=== PATIENT | female | born 1965 | race Two or more races ===

== ENCOUNTER 2024-03-17 08:22 | Inpatient (IN) | payer BC ==
[2024-03-15 09:04] LABS: Urine Bacteria None Seen /hpf (None Seen)
[2024-03-15 09:06] LABS: Basophils # (auto) 0.1 10 ^3/uL (0-0.2); Eosinophils # (auto) 0.1 10 ^3/uL (0-0.8); Hemoglobin 13.4 g/dL (12.2-16.2); Lymphocytes # (auto) 1.6 10 ^3/uL (0.4-5.4); Lymphocytes % (auto) 24.2 % (10.0-50.0); Mean Corpuscular Hemoglobin 29.3 pg (28.0-32.0); Mean Corpuscular Hgb Conc. 33.5 g/dL (32.0-36.0); Mean Corpuscular Volume 87.4 fL (80.0-100.0); Monocytes # (auto) 0.5 10 ^3/uL (0-1.3); Monocytes % (auto) 7.3 % (0.0-12.0); Neutrophils # (auto) 4.2 10 ^3/uL (1.6-8.6); Neutrophils % (auto) 65.5 % (37.0-80.0); Nucleated Red Blood Cells % 0.1 %; Red Blood Cells 4.58 10^6/uL (4.0-5.20); Red Cell Distribution Width 12.6 % (11.8-14.3); White Blood Cell 6.4 10^3/uL (4.4-10.8)
[2024-03-15 09:23] LABS: Urine Blood TRACE /uL (Negative); Urine Budding Yeast OCCASIONAL /hpf (None Seen); Urine Clarity Clear (Clear); Urine Color Light-Yellow (Yellow); Urine Protein, UAD Negative (Negative); Urine Specific Gravity 1.018 (1.001-1.035); Urine Urobilinogen Normal (Negative); Urine WBC 2 /hpf (0 - 5); Urine pH 6.5 (5.0-9.0)
[2024-03-15 09:24] LABS: INR 1.01 (0.9-1.15); Partial Thromboplastin Time 26.7 SEC (24.5-34.5); Prothrombin Time 10.7 sec (9.3-11.8)
[2024-03-15 09:47] LABS: Alanine Aminotransferase 19 U/L (7-40); Albumin 4.2 g/dL (3.2-4.8); Alkaline Phosphatase 76 U/L (46-116); Anion Gap 4 (5-15); Aspartate Aminotransferase 15 U/L (13-40); BUN/Creatinine Ratio 13.5 (10.0-20.0); Bilirubin, Total 0.7 mg/dL (0.2-1.0); Blood Urea Nitrogen 12 mg/dL (9-23); Calcium 9.8 mg/dL (8.5-10.1); Carbon Dioxide 32 mmol/L (20-30); Chloride 106 mmol/L (98-107); Glucose 137 mg/dL (74-106); Sodium 142 mmol/L (136-145); Total Protein 6.7 g/dL (5.7-8.2)
[~2024-03-17] VITALS: Ht 162.6 cm; Wt 65.3 kg
[2024-03-17] MEDS: levoFLOXacin 750MG 150 ML IV ONE (08:15)
[~2024-03-17 08:22] MED LIST: ACET-1304 PO; BUPR-133 PO; MULT-733 OR; TOPI100T68 PO; TRAZ-228 PO; ZINC50TA7 PO
[2024-03-17] MEDS: LIDOCAINE 2% JELLY 11ml (GLYDO) ONE (08:39)
[2024-03-17] MEDS: TRANEXAMIC ACID 20 ML ONE (08:39)
[2024-03-17] MEDS: ceFAZolin 2 GM/D5W50ml 50 ML IV ONE (08:41)
[2024-03-17] MEDS ORDERED: HYDROmorphone HCL 2 MG/ML VL/or syr ONE (09:51)
[2024-03-17] MEDS ORDERED: MIDAZOLAM HCL 2MG/2ML 2ml VIAL (1mg/ml) ONE (09:51)
[2024-03-17] MEDS ORDERED: fentaNYL CITRATE 100 MCG/2 ML VL ONE (09:51)
[2024-03-17] MEDS ORDERED: DexAMETHasone SOD PHOS 10MG/1ML VIAL INJ ONE (11:30)
[2024-03-17] MEDS ORDERED: NITROGLYCERIN 0.4 MG SL TAB SL PRN (15:15)
[2024-03-17] MEDS ORDERED: ONDANSETRON HCL 4 MG/2 ML VIAL IV PRN (15:15)
[2024-03-17] MEDS ORDERED: ceFAZolin 1GM/50ML 50 ML IV SCH (15:15)
[2024-03-17] MEDS ORDERED: MORPHINE SULFATE INJ 2 MG/ml SYRG IV PRN (15:15)
[2024-03-17 15:43] VITALS: O2SAT 99
[2024-03-17] MEDS: D5W/SOD CHLO 0.9% 1,000 ML IV SCH (16:10)
[2024-03-17] MEDS ORDERED: MORPHINE SULFATE 4 MG/ML SYR/VIAL IV PRN (16:15)
[2024-03-17] MEDS ORDERED: HYDROmorphone HCL 2 MG/ML VL/or syr IV PRN (16:15)
[2024-03-17] MEDS ORDERED: MIDAZOLAM HCL 2MG/2ML 2ml VIAL (1mg/ml) IV PRN (16:15)
[2024-03-17] MEDS ORDERED: LABETALOL HCL 5 MG/ML 4ML SYRINGE IV PRN (16:15)
[2024-03-17] MEDS ORDERED: ePHEDrine SULFATE 50 MG/ML AMP IV PRN (16:15)
[2024-03-17] MEDS: ONDANSETRON HCL 4 MG/2 ML VIAL IV ONE (16:33)
[2024-03-17 16:56] VITALS: BP 116/61; PULSE 75; PULSE 79; RESP 16; RESP 18; TEMP 98.1; O2SAT 99
[2024-03-17] MEDS ORDERED: PHENYLEPHRINE HCL 10 MG/ML VL IV ONE (17:13)
[2024-03-17 20:00] VITALS: BP 123/65; PULSE 86; RESP 20; TEMP 98.1; O2SAT 98
[2024-03-17] MEDS: MORPHINE SULFATE 4 MG/ML SYR/VIAL IV PRN (20:13)
[2024-03-17 21:00] VITALS: BP 123/65; PULSE 86; RESP 22; TEMP 98.1; O2SAT 98
[2024-03-17] MEDS: ceFAZolin 1GM/50ML 50 ML IV SCH (21:09)
[2024-03-17] MEDS: CYCLOBENZAPRINE HCL 10 MG TAB PO SCH (21:09)
[2024-03-17] MEDS: DOCUSATE SOD 100 MG CAP PO SCH (21:09)
[2024-03-17] MEDS: HYDROcodone-ACET 10/325MG TAB PO PRN (23:42)
[2024-03-18] VITALS (7 sets, daily range): BP systolic 113–141; BP diastolic 56–66; PULSE 68–84; RESP 16–22; TEMP 97.9–100.4; O2SAT 69–100
[2024-03-18] MEDS: THROAT LOZENGES(CEPASTAT) MT PRN (08:41)
[2024-03-18] MEDS: TOPIRAMATE 100 MG TAB PO SCH (10:18)
[2024-03-18] MEDS: buPROPion HCL 75 MG TAB PO SCH (18:28)
[2024-03-18] MEDS: DexAMETHasone SOD PHOS 10MG/1ML VIAL INJ IV ONE (21:18)
[2024-03-18] MEDS: ACETAMINOPHEN 325 MG TAB PO PRN (21:19)
[2024-03-19] VITALS (8 sets, daily range): BP systolic 107–156; BP diastolic 5–79; PULSE 61–86; RESP 14–20; TEMP 97.4–98.9; O2SAT 92–98
[2024-03-19 07:11] LABS: Basophils # (auto) 0 10 ^3/uL (0-0.2); Basophils % (auto) 0.1 % (0.0-2.0); Eosinophils # (auto) 0 10 ^3/uL (0-0.8); Hemoglobin 13.2 g/dL (12.2-16.2); Lymphocytes # (auto) 0.4 10 ^3/uL (0.4-5.4); Lymphocytes % (auto) 7.8 % (10.0-50.0); Mean Corpuscular Hemoglobin 29.5 pg (28.0-32.0); Mean Corpuscular Hgb Conc. 33.8 g/dL (32.0-36.0); Mean Corpuscular Volume 87.4 fL (80.0-100.0); Monocytes # (auto) 0.3 10 ^3/uL (0-1.3); Monocytes % (auto) 5.4 % (0.0-12.0); Neutrophils # (auto) 4.7 10 ^3/uL (1.6-8.6); Neutrophils % (auto) 86.7 % (37.0-80.0); Nucleated Red Blood Cells % 0.1 %; Red Blood Cells 4.47 10^6/uL (4.0-5.20); Red Cell Distribution Width 12.7 % (11.8-14.3); White Blood Cell 5.5 10^3/uL (4.4-10.8)
[2024-03-19 07:18] LABS: Alanine Aminotransferase 16 U/L (7-40); Albumin 3.8 g/dL (3.2-4.8); Alkaline Phosphatase 66 U/L (46-116); Anion Gap 6 (5-15); Aspartate Aminotransferase 17 U/L (13-40); Calcium 9.5 mg/dL (8.7-10.4); Carbon Dioxide 27 mmol/L (20-30); Chloride 105 mmol/L (98-107); Glucose 170 mg/dL (74-106); Potassium 3.6 mmol/L (3.5-5.1); Sodium 138 mmol/L (136-145)
[2024-03-19 07:19] LABS: Bilirubin, Total 0.6 mg/dL (0.2-1.0); Total Protein 6.7 g/dL (5.7-8.2)
[2024-03-19 07:32] LABS: BUN/Creatinine Ratio 7.2 (10.0-20.0); Blood Urea Nitrogen < 5 mg/dL (9-23)
[2024-03-19 18:45] LABS: Urine Bacteria None Seen /hpf (None Seen); Urine WBC None Seen /hpf (0 - 5)
[2024-03-19 19:07] LABS: Urine Blood Negative /uL (Negative); Urine Clarity Clear (Clear); Urine Color Light-Yellow (Yellow); Urine Protein, UAD Negative (Negative); Urine Specific Gravity 1.006 (1.001-1.035); Urine Urobilinogen Normal (Negative); Urine pH 7.5 (5.0-9.0)
[2024-03-20] VITALS (8 sets, daily range): BP systolic 114–138; BP diastolic 65–75; PULSE 55–77; RESP 15–20; TEMP 97–98; O2SAT 97–98
[2024-03-21 01:00] VITALS: BP 100/56; PULSE 65; RESP 20; TEMP 98.2; O2SAT 97
[2024-03-21 05:01] VITALS: BP 114/67; PULSE 63; RESP 16; TEMP 97.6; O2SAT 98
[2024-03-21 09:00] VITALS: BP 121/64; PULSE 61; RESP 17; TEMP 97.8; O2SAT 97
[2024-03-21 13:00] VITALS: BP 125/71; PULSE 74; RESP 18; TEMP 98.6; O2SAT 99
[2024-03-21] MEDS ORDERED: ACETAMINOPHEN 500 MG TAB PO PRN (15:30)
[2024-03-21] MEDS ORDERED: traZODone HCL 50 MG TAB PO SCH (22:00)
[2024-03-22] MEDS ORDERED: ZINC GLUCONATE 50 MG PO SCH (10:00)
[2024-03-22] MEDS ORDERED: [UNRECOGNIZED DRUG - OTHER] PO SCH (10:00)
== END 2024-03-21 17:14 | disposition home or self-care (01) | DRG 518 ==
LOC: SUR 08:22 → OVERFLOW 15:09 → WEST WING 16:47
PROVIDERS: ADMIT Orthopaedic Surgery; ATTEND Internal Medicine
PROC: 01N10ZZ Release Cervical Nerve, Open Approach (ICD-10-PCS; 2024-03-17)
PROC: 00NW0ZZ Release Cervical Spinal Cord, Open Approach (ICD-10-PCS; 2024-03-17)
PROC: 0RB30ZZ Excision of Cervical Vertebral Disc, Open Approach (ICD-10-PCS; 2024-03-17)
PROC: 4A11X4G Monitoring of Peripheral Nervous Electrical Activity, Intraoperative, External Approach (ICD-10-PCS; 2024-03-17)
PROC: 0RR30JZ Replacement of Cervical Vertebral Disc with Synthetic Substitute, Open Approach (ICD-10-PCS; principal; 2024-03-17 12:03)
DX: M48.02 Spinal stenosis, cervical region (principal); N39.0 Urinary tract infection, site not specified; F41.9 Anxiety disorder, unspecified; M54.12 Radiculopathy, cervical region; Z79.899 Other long term (current) drug therapy
CPT/HCPCS: 36415; 80053; 81001; 85025; 85610; 85730; 86850; 86900; 86901; 97110; 97116; 97163; 97530; G0378; J1100; J1956; J2250; J2704; J7042